=== PATIENT | female | born 1990 | race Caucasian/White ===

== ENCOUNTER 2017-01-20 20:05 | Emergency (ER) | payer OTHER ==
[~2017-01-20] VITALS: Ht 160 cm; Wt 50.9 kg
[2017-01-20 20:29] LABS: HEMATOCRIT 44.7 % (36.0-46.0); MCH 29.6 PG (29.0-34.0); MCHC 34.5 G/DL (30.0-36.0); MEAN PLAT.VOLUME 10.9 uM^3 (9.5-12.4); PLATELET COUNT 262 K/uL (156-360); RBC DIS.WIDTH-CV 12.5 % (11.8-14.6); RBC DIS.WIDTH-SD 39.4 % (39-53); WHITE BLOOD COUNT 12.9 K/uL (4.1-10.2)
[2017-01-20 20:37] LABS: ADD MIUA? YES; BILIRUBIN NEGATIVE; BLOOD NEGATIVE; COLOR YELLOW ((YELLOW)); GLUCOSE (STRIP) NEGATIVE; KETONES NEGATIVE; LEUKOCYTES NEGATIVE; NITRITE NEGATIVE; PROTEIN (STRIP) NEGATIVE; SPECIFIC GRAVITY 1.011 (1.000-1.030); UROBILINOGEN 0.2 MG/DL (0.2-1.0)
[2017-01-20 20:52] LABS: CHLORIDE 104 mEq/L (99-109); POTASSIUM 3.9 mEq/L (3.7-5.4); SODIUM 139 mEq/L (136-147)
[2017-01-20 20:54] LABS: GLUCOSE 97 mg/dL (70-99)
[2017-01-20 20:55] LABS: ANION GAP 11 MEQ/L (2-14)
[2017-01-20 20:56] LABS: TOTAL BILIRUBIN 0.4 mg/dL (0.0-1.0)
[2017-01-20 20:58] LABS: ALKALINE PHOSPHATASE 77 IU/L (3-129); GFR ESTIMATE (CALCULATED) > 59 mL/min/
[2017-01-20 20:59] LABS: UREA NITROGEN (BUN) 12 mg/dL (9-23)
[2017-01-20 21:04] LABS: CASTS NONE SEEN /LPF; EPITHELIAL CELLS 4+ /HPF; MUCUS TRACE /LPF
[2017-01-20 21:05] LABS: AMORPHOUS URATES CRYSTALS 4+; BACTERIA 1+ /HPF; CRYSTALS PRESENT; RED BLOOD CELLS NONE SEEN /HPF (0-5); UCUL ADDED? NO; WHITE BLOOD CELLS 0-5 /HPF (0-5)
[2017-01-20] MEDS ORDERED: PRENATAL ONE T1 EACH PO (23:32)
[2017-01-20 23:43] VITALS: BP 128/80
== END 2017-01-20 23:43 | disposition home or self-care (01) ==
LOC: EME 20:05
DX: O26.891 Other specified pregnancy related conditions, first trimester (principal); Z3A.01 Less than 8 weeks gestation of pregnancy
CPT/HCPCS: 76801; 80053; 81003; 84702; 85027; 99281; 99283

== ENCOUNTER 2017-02-17 14:06 | Inpatient (IN) | payer OTHER ==
[~2017-02-17] VITALS: Ht 160 cm; Wt 55.0 kg
[~2017-02-17 14:06] MED LIST: PRENATAL ONE T1 EACH PO
[2017-02-17 14:51] LABS: HEMATOCRIT 40.8 % (36.0-46.0); MCH 29.9 PG (29.0-34.0); MCHC 34.3 G/DL (30.0-36.0); MCV 87.2 FL (83-99); MEAN PLAT.VOLUME 10.9 uM^3 (9.5-12.4); PLATELET COUNT 212 K/uL (156-360); RBC DIS.WIDTH-CV 13.4 % (11.8-14.6); RBC DIS.WIDTH-SD 42.8 % (39-53); RED BLOOD COUNT 4.68 M/uL (3.80-5.20); WHITE BLOOD COUNT 14.6 K/uL (4.1-10.2)
[2017-02-17 17:05] LABS: ADD MIUA? YES; BILIRUBIN NEGATIVE; BLOOD NEGATIVE; COLOR YELLOW ((YELLOW)); GLUCOSE (STRIP) NEGATIVE; KETONES NEGATIVE; LEUKOCYTES NEGATIVE; NITRITE NEGATIVE; PROTEIN (STRIP) NEGATIVE; SPECIFIC GRAVITY 1.015 (1.000-1.030); UROBILINOGEN 0.2 MG/DL (0.2-1.0)
[2017-02-17 17:14] LABS: BACTERIA RARE /HPF; EPITHELIAL CELLS 2+ /HPF; MUCUS TRACE /LPF; RED BLOOD CELLS 0-5 /HPF (0-5); UCUL ADDED? NO; WHITE BLOOD CELLS 0-5 /HPF (0-5)
[2017-02-17] MEDS ORDERED: [UNRECOGNIZED DRUG - OTHER] PO (23:22)
[2017-02-18 00:59] VITALS: BP 114/73
[2017-02-18 03:23] VITALS: BP 89/50
[2017-02-18 06:35] LABS: HEMATOCRIT 37.1 % (36.0-46.0); MCH 30.7 PG (29.0-34.0); MCHC 35.3 G/DL (30.0-36.0); MCV 86.9 FL (83-99); MEAN PLAT.VOLUME 10.8 uM^3 (9.5-12.4); PLATELET COUNT 189 K/uL (156-360); RBC DIS.WIDTH-CV 13.7 % (11.8-14.6); RBC DIS.WIDTH-SD 42.5 % (39-53); RED BLOOD COUNT 4.27 M/uL (3.80-5.20); WHITE BLOOD COUNT 13.6 K/uL (4.1-10.2)
[2017-02-18 06:56] LABS: ANION GAP 8 MEQ/L (2-14); CHLORIDE 104 MEQ/L (99-109); GFR ESTIMATE (CALCULATED) > 59 mL/min/; GLUCOSE 89 mg/dL (70-99); POTASSIUM 3.8 MEQ/L (3.7-5.4); SAMPLE HEMOLYSIS CHECK 0; SAMPLE ICTERIC CHECK 0; SAMPLE LIPEMIA CHECK 0; SODIUM 137 MEQ/L (136-147); UREA NITROGEN (BUN) 7 mg/dL (9-23)
[2017-02-18 07:50] VITALS: BP 98/53
[2017-02-18 11:20] VITALS: BP 110/66
[2017-02-18 15:20] VITALS: BP 111/57
[2017-02-18 18:19] LABS: CANDIDA DNA PROBE NEGATIVE; GARDNERELLA DNA PROBE POSITIVE; INTERNAL CONTROL VALID? YES
[2017-02-18 20:24] VITALS: BP 107/60
[2017-02-19 00:47] VITALS: BP 103/58
[2017-02-19 04:06] VITALS: BP 103/51
[2017-02-19 06:35] LABS: HEMATOCRIT 39.2 % (36.0-46.0); MCH 29.6 PG (29.0-34.0); MCHC 34.2 G/DL (30.0-36.0); MCV 86.5 FL (83-99); MEAN PLAT.VOLUME 10.5 uM^3 (9.5-12.4); PLATELET COUNT 217 K/uL (156-360); RBC DIS.WIDTH-CV 13.5 % (11.8-14.6); RBC DIS.WIDTH-SD 42.3 % (39-53); RED BLOOD COUNT 4.53 M/uL (3.80-5.20); WHITE BLOOD COUNT 10.6 K/uL (4.1-10.2)
[2017-02-19 08:10] VITALS: BP 99/55
[2017-02-19] MEDS ORDERED: ZOFRAN4 MG PO (09:29)
[2017-02-19] MEDS ORDERED: AUGMENTIN875 MG PO (09:38)
[2017-02-19] MEDS ORDERED: NORCO 5/3251 TABLET PO (09:55)
[2017-02-19 11:59] VITALS: BP 113/65
[2017-02-21 13:40] LABS: CHLAMYDIA TRACHOMATIS NEGATIVE; NEISSERIA GONORRHOEAE NEGATIVE
== END 2017-02-19 14:34 | disposition home or self-care (01) | DRG 781 ==
LOC: EME 14:06 → EDOF 23:08 → ENRESERV 23:10 → CANRESERV 23:31 → ENRESERV 23:31 → EDOF 02-18 00:07 → ENRESERV 02-18 00:13 → 2EAST 02-18 00:40
PROVIDERS: Obstetrics & Gynecology; Surgery
DX: O26.891 Other specified pregnancy related conditions, first trimester (principal); R10.31 Right lower quadrant pain; O99.341 Other mental disorders complicating pregnancy, first trimester; F41.9 Anxiety disorder, unspecified; Z3A.10 10 weeks gestation of pregnancy; Z88.5 Allergy status to narcotic agent
CPT/HCPCS: 74181; 76801; 80048; 81003; 84702; 85027; 86900; 86901; 87480; 87491; 87510; 87591; 87660; 99281; 99285; G0378; J0744; J2270; J2405; J2765; J7120

== ENCOUNTER 2017-02-21 14:21 | Inpatient (IN) | payer OTHER ==
[~2017-02-21] VITALS: Ht 160 cm; Wt 55.3 kg
[~2017-02-21 14:21] MED LIST changes: +AUGMENTIN875 MG PO; +NORCO 5/3251 TABLET PO; +ZOFRAN4 MG PO; +[UNRECOGNIZED DRUG - OTHER] PO
[2017-02-21 15:32] LABS: MCH 29.8 PG (29.0-34.0); MCHC 35.1 G/DL (30.0-36.0); MCV 84.7 FL (83-99); MEAN PLAT.VOLUME 10.5 uM^3 (9.5-12.4); PLATELET COUNT 227 K/uL (156-360); RBC DIS.WIDTH-CV 13.2 % (11.8-14.6); RBC DIS.WIDTH-SD 41.1 % (39-53); RED BLOOD COUNT 4.84 M/uL (3.80-5.20); WHITE BLOOD COUNT 16.5 K/uL (4.1-10.2)
[2017-02-21 15:55] LABS: BILIRUBIN NEGATIVE; GLUCOSE (STRIP) NEGATIVE; KETONES MODERATE
[2017-02-21 15:56] LABS: ADD MIUA? YES; BLOOD TRACE; COLOR YELLOW ((YELLOW)); NITRITE NEGATIVE; PH, URINE 7.5 (5-8); PROTEIN (STRIP) NEGATIVE; SPECIFIC GRAVITY 1.005 (1.000-1.030); UROBILINOGEN 0.2 MG/DL (0.2-1.0)
[2017-02-21 15:57] LABS: LEUKOCYTES SMALL
[2017-02-21 16:09] LABS: QUANTITATIVE HCG 115532.8 MIU/ML
[2017-02-21 16:31] LABS: CASTS NONE SEEN /LPF; EPITHELIAL CELLS 4+ /HPF; MUCUS TRACE /LPF
[2017-02-21 16:32] LABS: RED BLOOD CELLS NONE SEEN /HPF (0-5); WHITE BLOOD CELLS 0-5 /HPF (0-5)
[2017-02-21 16:33] LABS: AMORPHOUS PHOSPHATE CRYSTALS 1+; BACTERIA 1+ /HPF; CRYSTALS PRESENT; UCUL ADDED? NO
[2017-02-21 19:23] LABS: CHLORIDE 102 mEq/L (99-109); POTASSIUM 3.9 mEq/L (3.7-5.4); SODIUM 134 mEq/L (136-147)
[2017-02-21 19:25] LABS: GLUCOSE 90 mg/dL (70-99)
[2017-02-21 19:26] LABS: ANION GAP 14 MEQ/L (2-14)
[2017-02-21 19:29] LABS: GFR ESTIMATE (CALCULATED) > 59 mL/min/
[2017-02-21 19:30] LABS: UREA NITROGEN (BUN) 6 mg/dL (9-23)
[2017-02-21] MEDS ORDERED: AMOX TR-K CLV1 EAC4 PO (21:49)
[2017-02-22 00:48] VITALS: BP 114/70
[2017-02-22 04:00] VITALS: BP 103/69
[2017-02-22 06:15] LABS: BASOPHIL COUNT 0.1 K/uL (0-0.1); EOSINOPHIL COUNT 0.1 K/uL (0-0.3); HEMATOCRIT 32.7 % (36.0-46.0); IMMATURE GRANULOCYTE (%) 0.7 % (0.0-0.7); IMMATURE GRANULOCYTE COUNT 0.1 K/uL; INSTRUMENT ABS NEUTROPHIL CT 7.9 K/uL; LYMPHOCYTE COUNT 1.7 K/uL (1.0-2.8); MCH 30.1 PG (29.0-34.0); MCHC 34.6 G/DL (30.0-36.0); MCV 87.2 FL (83-99); MEAN PLAT.VOLUME 10.9 uM^3 (9.5-12.4); MONOCYTE (%) 8.1 % (3-12); MONOCYTE COUNT 0.9 K/uL (0-0.8); NEUTROPHIL COUNT 7.9 K/uL (1.8-6.4); PLATELET COUNT 186 K/uL (156-360); RBC DIS.WIDTH-CV 13.3 % (11.8-14.6); RBC DIS.WIDTH-SD 42.5 % (39-53); WHITE BLOOD COUNT 10.7 K/uL (4.1-10.2)
[2017-02-22 06:20] LABS: RED BLOOD COUNT 3.75 M/uL (3.80-5.20)
[2017-02-22 06:40] LABS: ALKALINE PHOSPHATASE 36 IU/L (3-129); ANION GAP 8 MEQ/L (2-14); CHLORIDE 105 MEQ/L (99-109); GFR ESTIMATE (CALCULATED) > 59 mL/min/; GLUCOSE 83 mg/dL (70-99); POTASSIUM 3.4 MEQ/L (3.7-5.4); SAMPLE HEMOLYSIS CHECK 0; SAMPLE ICTERIC CHECK 0; SAMPLE LIPEMIA CHECK 0; SODIUM 136 MEQ/L (136-147); TOTAL BILIRUBIN 0.6 MG/DL (0.0-1.0); UREA NITROGEN (BUN) 5 mg/dL (9-23)
[2017-02-22 07:55] VITALS: BP 100/51
[2017-02-22 12:00] VITALS: BP 99/59
[2017-02-22 19:23] VITALS: BP 105/50
[2017-02-23 00:26] VITALS: BP 109/55
[2017-02-23 04:03] VITALS: BP 100/61
[2017-02-23 07:45] VITALS: BP 95/51
[2017-02-23 11:51] VITALS: BP 103/60
[2017-02-23 15:36] VITALS: BP 121/62
[2017-02-23 23:27] VITALS: BP 100/61
[2017-02-24 06:47] LABS: BASOPHIL COUNT 0.1 K/uL (0-0.1); EOSINOPHIL (%) 1.5 % (0-5); EOSINOPHIL COUNT 0.1 K/uL (0-0.3); HEMATOCRIT 35.3 % (36.0-46.0); IMMATURE GRANULOCYTE (%) 0.5 % (0.0-0.7); INSTRUMENT ABS NEUTROPHIL CT 6.6 K/uL; LYMPHOCYTE COUNT 1.1 K/uL (1.0-2.8); MCH 29.4 PG (29.0-34.0); MCHC 33.7 G/DL (30.0-36.0); MCV 87.2 FL (83-99); MEAN PLAT.VOLUME 10.9 uM^3 (9.5-12.4); MONOCYTE (%) 9.9 % (3-12); MONOCYTE COUNT 0.9 K/uL (0-0.8); NEUTROPHIL COUNT 6.6 K/uL (1.8-6.4); PLATELET COUNT 210 K/uL (156-360); RBC DIS.WIDTH-CV 13.2 % (11.8-14.6); RBC DIS.WIDTH-SD 42.2 % (39-53); RED BLOOD COUNT 4.05 M/uL (3.80-5.20); WHITE BLOOD COUNT 8.8 K/uL (4.1-10.2)
[2017-02-24 07:05] VITALS: BP 101/61
[2017-02-24 07:16] LABS: ANION GAP 7 MEQ/L (2-14); CHLORIDE 106 MEQ/L (99-109); GFR ESTIMATE (CALCULATED) > 59 mL/min/; GLUCOSE 89 mg/dL (70-99); SAMPLE HEMOLYSIS CHECK 0; SAMPLE ICTERIC CHECK 0; SAMPLE LIPEMIA CHECK 0; SODIUM 137 MEQ/L (136-147); UREA NITROGEN (BUN) 4 mg/dL (9-23)
[2017-02-24 07:22] LABS: POTASSIUM 4.2 MEQ/L (3.7-5.4)
[2017-02-24 11:05] VITALS: BP 117/62
[2017-02-24] MEDS ORDERED: METRONIDAZOLE500 MG PO ×2 (11:06→13:50)
[2017-02-24] MEDS ORDERED: TRAMADOL HCL50 MG PO (11:06)
[2017-02-24] MEDS ORDERED: AMOX TR-K CLV1 EAC4 PO (11:06)
[2017-02-24] MEDS ORDERED: ZOFRAN4 MG PO (11:06)
[2017-02-24] MEDS ORDERED: PHENADOZ25 MG PR (13:42)
[2017-02-24] MEDS ORDERED: IBUPROFEN400 MG PO (13:43)
[2017-02-24] MEDS ORDERED: AMOX TR-K400 MG/5 M PO (13:43)
[2017-02-24] MEDS ORDERED: METOCLOPRAMIDE10 MG PO (13:44)
[2017-02-24] MEDS ORDERED: ONDANSETRON ODT4 MG SL (13:44)
[2017-02-24 15:28] VITALS: BP 106/57
== END 2017-02-24 17:25 | disposition home or self-care (01) | DRG 781 ==
LOC: EME 14:21 → EDOF 21:16 → 2EASTP 21:16 → ENRESERV 21:17 → EDOF 02-22 00:38 → 2EASTP 02-22 00:39 → 2EAST 02-23 12:40 → 2EASTP 02-23 12:40 → 2EAST 02-23 19:42
PROVIDERS: Obstetrics & Gynecology
DX: O21.1 Hyperemesis gravidarum with metabolic disturbance (principal); O23.91 Unspecified genitourinary tract infection in pregnancy, first trimester; N73.9 Female pelvic inflammatory disease, unspecified; N76.0 Acute vaginitis; Z3A.10 10 weeks gestation of pregnancy; D72.829 Elevated white blood cell count, unspecified; O99.511 Diseases of the respiratory system complicating pregnancy, first trimester; J45.909 Unspecified asthma, uncomplicated; O99.89 Other specified diseases and conditions complicating pregnancy, childbirth and the puerperium; M54.5 Low back pain; O99.341 Other mental disorders complicating pregnancy, first trimester; F32.9 Major depressive disorder, single episode, unspecified; F41.9 Anxiety disorder, unspecified
CPT/HCPCS: 74181; 76705; 76801; 80048; 80048 91; 80053; 81003; 84702; 85025; 85027; 87086; 99281; 99285; G0378; J2270; J2405; J2765; J7030; J7120; S0030

== ENCOUNTER 2017-08-13 20:42 | Outpatient (CLI) | payer OTHER ==
[~2017-08-13] VITALS: Ht 157.5 cm; Wt 70.8 kg
[~2017-08-13 20:42] MED LIST changes: +AMOX TR-K CLV1 EAC4 PO; +AMOX TR-K400 MG/5 M PO; +IBUPROFEN400 MG PO; +METOCLOPRAMIDE10 MG PO; +METRONIDAZOLE500 MG PO; +ONDANSETRON ODT4 MG SL; +PHENADOZ25 MG PR; +TRAMADOL HCL50 MG PO
[2017-08-13 20:51] VITALS: BP 117/70
[2017-08-13 22:07] LABS: HEMATOCRIT 31.6 % (36.0-46.0); HEMOGLOBIN 10.8 G/DL (11.9-15.5); MCH 28.9 PG (29.0-34.0); MCHC 34.2 G/DL (30.0-36.0); MCV 84.5 FL (83-99); PLATELET COUNT 152 K/uL (156-360); RBC DIS.WIDTH-CV 12.9 % (11.8-14.6); RBC DIS.WIDTH-SD 39.4 % (39-53); RED BLOOD COUNT 3.74 M/uL (3.80-5.20); WHITE BLOOD COUNT 12.6 K/uL (4.1-10.2)
[2017-08-13 22:16] LABS: CHLORIDE 106 mEq/L (99-109); POTASSIUM 3.9 mEq/L (3.7-5.4); SODIUM 138 mEq/L (136-147)
[2017-08-13 22:18] LABS: GLUCOSE 130 mg/dL (70-99)
[2017-08-13 22:22] LABS: CREATININE 0.6 mg/dL (0.6-1.3); GFR ESTIMATE (CALCULATED) > 59 mL/min/
[2017-08-13 22:23] LABS: UREA NITROGEN (BUN) 8 mg/dL (9-23)
[2017-08-13 22:24] LABS: APPEARANCE CLOUDY ((CLEAR)); BILIRUBIN NEGATIVE; BLOOD NEGATIVE; COLOR YELLOW ((YELLOW)); GLUCOSE (STRIP) 150; KETONES 5; LEUKOCYTES TRACE; NITRITE NEGATIVE; PROTEIN (STRIP) 30; SPECIFIC GRAVITY 1.014 (1.000-1.030); UROBILINOGEN 0.2 MG/DL (0.2-1.0)
[2017-08-13 22:31] LABS: THC CANNABINOIDS NEGATIVE (50 ng/mL)
[2017-08-13 22:32] LABS: AMPHETAMINE NEGATIVE (500 ng/mL); BACTERIA 2+ /HPF; BARBITURATES NEGATIVE (200 ng/mL); BENZODIAZEPINES NEGATIVE (150 ng/mL); BUPRENORPHINE NEGATIVE (10 ng/mL); COCAINE NEGATIVE (150 ng/mL); EPITHELIAL CELLS 4+ /HPF; METHADONE NEGATIVE (200 ng/mL); METHAMPHETAMINE NEGATIVE (500 ng/mL); MUCUS TRACE /LPF; OPIATES (MORPHINE) NEGATIVE (100 ng/mL); OXYCODONE NEGATIVE (100 ng/mL); PHENCYCLIDINE NEGATIVE (25 ng/mL); PROPOXYPHENE NEGATIVE (300 ng/mL); RED BLOOD CELLS 0-5 /HPF (0-5); TRICYCLIC ANTIDEPRESSANTS NEGATIVE (300 ng/mL); UCUL ADDED? YES
[2017-08-13 23:19] VITALS: BP 120/55
[2017-08-13 23:48] LABS: APPEARANCE CLEAR ((CLEAR)); BILIRUBIN NEGATIVE; BLOOD NEGATIVE; COLOR COLORLESS ((YELLOW)); GLUCOSE (STRIP) NEGATIVE; KETONES NEGATIVE; LEUKOCYTES NEGATIVE; NITRITE NEGATIVE; PROTEIN (STRIP) NEGATIVE; SPECIFIC GRAVITY 1.002 (1.000-1.030); UCUL ADDED? NO; UROBILINOGEN 0.2 MG/DL (0.2-1.0)
[2017-08-14] VITALS (7 sets, daily range): BP systolic 104–121; BP diastolic 59–77
[2017-08-14 04:38] LABS: ANTI-HIV (AIDS STAT TEST) NONREACTIVE
[2017-08-14 10:41] LABS: HIV-1/2 AB/AG COMBO Nonreactive
[2017-08-15 04:53] VITALS: BP 112/77
[2017-08-15 06:58] VITALS: BP 110/64
[2017-08-15 09:35] VITALS: BP 107/66
== END 2017-08-15 12:32 | disposition home or self-care (01) ==
LOC: LDRP-OP 20:42 → 2WEST 20:43
PROVIDERS: Advanced Practice Midwife; Obstetrics & Gynecology
DX: O26.893 Other specified pregnancy related conditions, third trimester (principal); M53.3 Sacrococcygeal disorders, not elsewhere classified; R10.2 Pelvic and perineal pain; O35.8XX0 Maternal care for other (suspected) fetal abnormality and damage, not applicable or unspecified; O99.820 Streptococcus B carrier state complicating pregnancy; O99.343 Other mental disorders complicating pregnancy, third trimester; F41.9 Anxiety disorder, unspecified; Z82.49 Family history of ischemic heart disease and other diseases of the circulatory system; Z81.8 Family history of other mental and behavioral disorders; Z3A.35 35 weeks gestation of pregnancy
CPT/HCPCS: 59025; 76805; 76818; 80048; 81003; 84443; 85027; 87077; 87086; 87186; 87389; G0378; J0702; J7120